=== PATIENT | male | born 2005 | race Caucasian/White ===

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

== ENCOUNTER 2024-01-28 04:22 | Emergency (ER) | payer MEDICAID, SELFPAY ==
[2024-01-28 04:25] VITALS: BP 144/100; PULSE 94; O2SAT 100
[2024-01-28 04:30] VITALS: BP 127/66; PULSE 62; RESP 16; TEMP 37; O2SAT 99; BMI 32.0
[2024-01-28 06:00] VITALS: BP 127/84; PULSE 92; RESP 18; TEMP 36.6; O2SAT 99
--- NOTE | 2024-01-28 06:00 | ED.WOUNDLAC ---
HPI - Wound/Laceration General Chief Complaint: Wound/Laceration Stated Complaint: Laceration Time Seen by Provider: 01/28/24 04:43 Source: patient Mode of arrival: ambulatory Limitations: no limitations History of Present Illness ED Provider: Dr. sIabelle Hickman HPI narrative: Patient's emergency room complaining of a laceration to the forehead. According to the patient, patient got very upset it on purpose smacked his forehead against the porcelain toilet cover and splint have. Patient did not lose consciousness, patient is not on blood thinners. Patient states that he is very regretful of what he did, patient states that when he gets very stressed he self harms without any intention of killing himself. Patient has had this happening before. Related Data Home Medications ?Medication ?Instructions ?Recorded ?Confirmed No Known Home Meds 10/10/23 10/10/23 Allergies Allergy/AdvReac Type Severity Reaction Status Date / Time amoxicillin Allergy Intermediate Swelling Verified 01/28/24 04:34 banana Allergy Intermediate Anaphylaxis Verified 01/28/24 04:34 Review of Systems Review of Systems: Constitutional : No Weight loss, No Fever, No Chills, No Night Sweats, No Fatigue, No Malaise ENT/Mouth : No Hearing loss, No Ear Pain, No Nasal Congestion, No Sinus Pain, No Hoarseness, No sore throat, No Rhinorrhea, No Swallowing Difficulty Eyes: No Eye Pain, No Swelling, No Redness, No Foreign Body, No Discharge, No Vision Changes Cardiovascular : No Chest Pain, No SOB, No Dyspnea on Exertion, No Orthopnea, No Edema, No Palpitations Respiratory : No Cough, No Sputum, No Wheezing, No Smoke Exposure, No Dyspnea Gastrointestinal : No Nausea, No Vomiting, No Diarrhea, No Constipation, No abdominal Pain, No Hematochezia, No Melena Genitourinary : no irregular bleeding, No Dysuria, No Urinary Frequency, No Hematuria, No Urinary Incontinence, No Urgency, No Flank Pain, No Urinary Flow Changes, No Hesitancy Musculoskeletal : No joint pain, No Myalgias, No Joint Swelling Skin : Complaining of a laceration in the forehead, No Skin Lesions, No rash Neuro : No Weakness, No Numbness, No Paresthesias, No Loss of Consciousness, No Dizziness, No Headache Psych : No Anxiety/Panic, No Depression, No SI/HI/AH/VH, No Social Issues, Heme/Lymph: No Bruising, No Bleeding,No Lymphadenopathy Endocrine : No Polyuria, No Polydipsia, No Temperature Intolerance [facility] Past Medical History Medical History Anxiety and depression Suicide attempt Social History Social History Alcohol intake: never Substance Use Type: Marijuana Advance Directives: No Advance Directives Information Provided: No Do you have a plan to hurt others: No Plan Physical Exam Vital Signs: Vital Signs: Last Vital Signs Temp 98.6 F 01/28/24 04:30 Pulse 62 01/28/24 04:30 Resp 16 01/28/24 04:30 BP 127/66 01/28/24 04:30 Pulse Ox 99 01/28/24 04:30 O2 Del Method Room Air 01/28/24 04:30 BMI result Body Mass Index 32.0 Const: Other: Appearance: Alert. Oriented X3. No acute distress. Eyes: Pupils equal, round and reactive to light. ENT: Pharynx normal. Neck: Normal inspection. Neck supple. No lymph nodes noted. No crepitus CVS: Normal heart rate and rhythm. Pulses normal. Normal S1 and S2 Respiratory: No respiratory distress. Breath sounds normal. No Wheezing. No rales Abdomen: Soft and nontender. No rigidity. No distention. Skin: Skin warm and dry. There is a 4 cm laceration in the forehead between eyebrows Extremities: No lower extremity edema. No Lacerations. No Rash Neuro: Oriented X 3. No motor deficit. No sensory deficit. Moving all extremities. No slurred speech. CN 2 through 12 grossly intact Psych: calm, cooperative, normal affect Medical Decision Making Medical Decision Making MDM Narrative: Patient is neurologically intact -patient id 6 stitches tolerated well the procedure -patient is not SI or HI, patient is not on a Section 12, patient does not want to talk to the care team Differential Diagnosis Differential Diagnoses: The differential diagnosis associated with the presentation includes (Laceration, anxiety, self-harm) Procedures Laceration Laceration 1: Site: face (Middle of forehead) Description: linear, flap and irregular Depth: simple, single layer Local Anesthetic: lidocaine 1% Amount of anesthesia used (mL): 6 Pre-repair: wound explored Skin layer closed with: nylon Size (cm): 5-0 Number of sutures: 6 Technique: simple, interrupted Discharge Plan Discharge Clinical Impression: Laceration Patient Disposition: Home, Self-Care Instructions: Care For Your Stitches (ED), Head Laceration (ED) Additional Instructions: Your stitches need to be removed in 7-10 days. Please follow-up with your primary care physician tomorrow. If you have any worsening or new symptoms, please return to the emergency room or call 911 Prescriptions: No Action No Known Home Meds Print Language: Persian
[2024-01-28 06:22] VITALS: BP 127/84; PULSE 92; RESP 18; TEMP 36.6; O2SAT 99
== END 2024-01-28 06:23 | disposition home or self-care (01) ==
PROVIDERS: Emergency Provider Emergency Medicine
DX: S01.81XA Laceration without foreign body of other part of head, initial encounter (principal); X83.8XXA Intentional self-harm by other specified means, initial encounter; F41.8 Other specified anxiety disorders; Y93.9 Activity, unspecified; Y92.9 Unspecified place or not applicable; Y99.9 Unspecified external cause status
CPT/HCPCS: 12013; 99284

== ENCOUNTER 2024-11-09 13:55 | Emergency (ER) | payer MEDICAID, SELFPAY ==
--- NOTE | ~2024-11-09 | CT_ITS ---
CLINICAL HISTORY: Left flank pain, hematuria CT ABDOMEN AND PELVIS WITHOUT CONTRAST Comparison: None Findings: The lung bases are clear. No hydronephrosis or significant perinephric edema. No urolithiasis. No acute abnormalities in the remaining unenhanced solid organs, gallbladder or abdominal aorta. No bowel obstruction, pneumoperitoneum, or pneumatosis. There is a small amount of free fluid in the pelvis. No significant mesenteric or paracolic edema. Increased number of shotty mesenteric lymph nodes in the right abdomen. The appendix is identified. No acute appendicitis. Nondistended urinary bladder precludes evaluation for wall thickening. Multiple pelvic phleboliths. No acute fracture. Well-circumscribed sclerotic lesion in the left ilium is suggestive of a benign bone island. IMPRESSION: 1. No acute obstructive uropathy or urolithiasis. 2. Small amount of free fluid in the pelvis is considered abnormal in a male patient but is technically indeterminate. No evidence for bowel obstruction or inflammation. 3. Possible mesenteric adenitis. This document has been electronically signed by: Meme Maradiaga DO on 11/09/2024 20:32:48
--- NOTE | 2024-11-09 14:10 | ED.GENADULT ---
HPI - General Adult General Chief complaint: Urogenital-Male Stated complaint: Blood in urine Time Seen by Provider: 11/09/24 16:03 Source: patient and family Mode of arrival: ambulatory Limitations: no limitations History of Present Illness ED Provider: DR. Smalls HPI narrative: 19-year-old male came in for evaluation hematuria associated with left flank pain radiating down to the left groin/suprapubic area. Pain started 3 days ago after having a sexual intercourse started by noticing gross hematuria in the urine with persistent of pain on the left side of his abdomen and suprapubic area, no risk for STI, no discharge from the penis, no scrotal pain or testicular pain or swelling. Normal bowel movement this morning, passing flatus, no history of kidney stone or intra-abdominal surgery. Related Data Home Medications ?Medication ?Instructions ?Recorded ?Confirmed No Known Home Meds 10/10/23 10/10/23 Allergies Allergy/AdvReac Type Severity Reaction Status Date / Time amoxicillin Allergy Intermediate Swelling Verified 11/09/24 14:13 banana Allergy Intermediate Anaphylaxis Verified 11/09/24 14:13 Review of Systems Review of Systems: All other systems are reviewed and are negative Constitutional: Reports as per HPI and Reports no additional constitutional complaints Eyes: Reports as per HPI and Reports no additional eye complaints Reports system reviewed and no additional complaints, except as documented Cardiovascular: Reports as per HPI and Reports no additional cardiovascular complaints Respiratory: Reports as per HPI and Reports no additional respiratory complaints Gastrointestinal: Reports as per HPI and Reports no additional gastrointestinal complaints Genitourinary: Reports no additional female genitourinary complaints Musculoskeletal: Reports no additional musculoskeletal complaints Skin/Breast: Reports system reviewed and no additional complaints, except as docu Psychiatric: Reports no additional psychiatric complaints Endocrine: Reports no additional endocrine complaints Hematologic/Lymphatic: Reports no additional hematologic/lymphatic complaints Allergic/Immunologic: Reports no additional allergic/immunologic complaints Reports system reviewed and no additional complaints, except as documented and Reports Abnormal speech present [facility] Past Medical History Medical History Anxiety and depression Suicide attempt Social History Social History Alcohol intake: never Smoked in Last 30 Days: No Use of substances other than those prescribed or required for medical reasons: Yes Substance Use Type: Marijuana Substance Use Frequency: Occasionally Advance Directives: No Advance Directives Information Provided: No Physical Exam ED Vital Signs: Vital Signs - 24 hr 11/09/24 14:11 11/09/24 15:32 11/09/24 16:00 Temperature 98.7 F 97.8 F 98.1 F Pulse Rate 77 64 67 Respiratory Rate 18 12 13 Blood Pressure 113/48 L 114/74 Pulse Oximetry 97 99 100 Oxygen Delivery Method Room Air Room Air Room Air 11/09/24 17:57 11/09/24 19:09 Temperature 97.1 F 98.3 F Pulse Rate 60 63 Respiratory Rate 12 18 Blood Pressure 105/43 L 114/37 L Pulse Oximetry 96 97 Oxygen Delivery Method Room Air Room Air BMI result Body Mass Index 32.0 Vital signs have been reviewed and appear to be correct. Blood pressure elevated. Heart rate normal. Respiratory rate normal. Temperature normal. Oxygen saturation normal. Appearance: Alert. Oriented X3. No acute distress. Head: Normal external exam. Normocephalic. Atraumatic. No Madden signs noted. No raccoon eyes noted Eyes: PERRLA. EOMI. Conjunctiva and sclera normal. Eyelids normal. ENT: TM's Normal. Pharynx normal. Uvula midline. Moist mucous membranes. No trismus noted. No drooling noted. No muffled voice noted. Neck: Normal inspection. Neck supple. FROM. No adenopathy. Thyroid Normal. No meningeal signs. No neck mass noted. CVS: Normal heart rate and rhythm. Heart sound normal. No murmurs noted. Pulses normal throughout. Respiratory: No respiratory distress. Painless inspiration. Breath sounds normal. No wheezes/rales/rhonchi noted. Chest nontender. No accessory muscle usage noted or decreased air movement noted. Abdomen: Soft and nontender. Bowel sounds normal in all 4 quadrants. No distention noted. No organomegaly noted. No visible injury noted. exam: Circumcised, no testicular or scrotal swelling, +cremasteric reflex bilaterally, no obvious urethral cut or injury. Back: No CVA tenderness. Full range of motion noted. Skin: Skin warm and dry. Normal skin color. Normal skin turgor. No rashes/lesions/lacerations noted. Extremities: No lower extremity edema. Extremities exhibit normal range of motion. Extremities nontender. Neuro: Oriented X 3. Cranial nerve exam: II-XII are grossly intact No motor deficit. No sensory deficit. Reflexes normal. Course Course Course Narrative: This is a rapid medical exam performed by Merrick Lugo NP: Additional HPI, ROS, PE not included below will be deferred to primary provider. Patient is a 19-year-old male presenting to the ED with complaint of hematuria for the past 4-5 days. Denies penile discharge or rashes. Reports pain to suprapubic area, radiating to left flank. Plan: Labs, UA Reevaluation(s) Reevaluation #1: gross hematuria, CT abdomen pelvis showing no obstructive uropathy. Negative STI and UTI. Patient was instructed to drink plenty of fluids and follow-up with urology. Time: 20:44 Medical Decision Making Differential Diagnosis Differential Diagnoses: The differential diagnosis associated with the presentation includes ( ureteric stone, ureteric stone, STI, UTI.) Admission/Observation Consideration of admission/observation: Escalation of care including admission/observation considered Lab Data MDM Lab Attestation statement: I reviewed the patient's lab results. 11/09/24 14:25 11/09/24 14:25 Labs: Lab Results 11/09/24 Range/Units 14:25 WBC 9.8 (4.8-10.8) X10*3/uL RBC 5.23 (4.60-5.80) X10*6/uL Hgb 15.1 (14.0-18.0) g/dl Hct 44.2 (42.0-52.0) % MCV 84.5 (80.0-98.0) fL MCH 28.9 (27.0-33.0) pg MCHC 34.2 (31.0-36.0) g/dl RDW 13.0 (11.0-16.0) % Plt Count 195 (160-400) X10*3/uL MPV 11.3 (9.4-12.4) fL Immature Gran % (Auto) 0.3 (0.0-0.4) % Neut % (Auto) 50.5 (45-73) % Lymph % (Auto) 40.6 H (20-40) % [place] % (Auto) 4.9 (2-11) % Eos % (Auto) 3.3 (0-4) % Baso % (Auto) 0.4 (0-2) % Lymph # (Auto) 4.0 (1.2-4.9) X10*3/uL [place] # (Auto) 0.5 (0.1-1.2) X10*3/uL Eos # (Auto) 0.3 (0.0-0.4) X10*3/uL Baso # (Auto) 0.0 (0.0-0.2) X10*3/uL Abs Immat Gran (auto) 0.03 (0.00-0.03) X10*3/uL Absolute Neuts (auto) 5.0 (2.0-8.3) x10*3/uL Absolute Nucleated RBC 0.000 (0.0-0.012) X10*3/uL Nucleated RBC % (auto) 0.0 (0.0-0.2) /100WBC Sodium 141 (135-145) mmol/L Potassium 4.1 (3.3-5.1) mmol/L Chloride 110 H (96-108) mmol/L Carbon Dioxide 26 (22-29) mmol/L Anion Gap 9 L (12-20) BUN 9 (9-16) mg/dL Creatinine 0.89 (0.5-1.4) mg/dL Estim Creat Clear Calc 139.1 Estimated GFR > 60 Random Glucose 101 (60-115) mg/dL Calcium 9.2 (8.4-10.2) mg/dL Total Bilirubin 0.3 (0.0-1.0) mg/dL AST 29 (5-37) U/L ALT 33 (0-40) U/L Alkaline Phosphatase 164 H (39-117) U/L Total Protein 6.5 (6.5-8.0) g/dL Albumin 4.2 (3.5-5.0) g/dL Urine Color Yellow Urine Appearance Clear Urine pH 7.0 (5.0-9.0) Ur Specific [place] 1.025 (1.005-1.025) Urine Protein 30 (1+) H (Neg-Trace) mg/dL Urine Glucose (UA) Negative (Negative) mg/dL Urine Ketones Trace (Negative) mg/dL Urine Blood Large (3+) H (Negative) Urine Nitrite Negative (Negative) Ur Leukocyte Esterase Negative (Negative) Urine RBC >20 H (0-2) /HPF Urine WBC 0-5 (0-5) /HPF Ur Squamous Epith Cells 0-2 (0-2) /HPF Urine Bacteria None Seen (None Seen) Hyaline Casts 0-2 (0-2) /LPF Chlam trachomat DNA PCR NOT DETECTED (Not Detect.) N.gonorrhoeae DNA (PCR) NOT DETECTED (Not Detect.) Independent Interpretation I performed an independent interpretation of an: CT Scan ( abdomen pelvis:1. No acute obstructive uropathy or urolithiasis. 2. Small amount of free fluid in the pelvis is considered abnormal in a male patient but is technically indeterminate. No evidence for bowel obstruction or inflammation. 3. Possible mesenteric adenitis.) Radiology Impression Discussion of test interpretation with radiology: I have reviewed the radiologist's reading. Discharge Plan Discharge Clinical Impression: Hematuria Patient Disposition: Home, Self-Care Instructions: Hematuria (ED) Prescriptions: No Action No Known Home Meds Referrals: Gualberto Carreno MD [Physician] - Print Language: Georgian
[2024-11-09 14:11] VITALS: PULSE 77; RESP 18; TEMP 37.1; O2SAT 97; BMI 32.0
[2024-11-09 14:29] LABS: MANUAL DIFF FLAG NO
[2024-11-09 14:31] LABS: Basophils Percent Auto 0.4 % (0-2); Eosinophils Absolute Auto 0.3 X10*3/uL (0.0-0.4); Eosinophils Percent Auto 3.3 % (0-4); Hematocrit 44.2 % (42.0-52.0); Hemoglobin 15.1 g/dl (14.0-18.0); Imm Gran Abs Auto 0.03 X10*3/uL (0.00-0.03); Imm Gran Pct Auto 0.3 % (0.0-0.4); Lymphocytes Percent Auto 40.6 % (20-40); Mean Corpuscular HGB Conc 34.2 g/dl (31.0-36.0); Mean Corpuscular Hemoglobin 28.9 pg (27.0-33.0); Mean Corpuscular Volume 84.5 fL (80.0-98.0); Mean Platelet Volume 11.3 fL (9.4-12.4); Monocytes Absolute Auto 0.5 X10*3/uL (0.1-1.2); Monocytes Percent Auto 4.9 % (2-11); Neutrophils Percent Auto 50.5 % (45-73); Platelet Count 195 X10*3/uL (160-400); Red Blood Count 5.23 X10*6/uL (4.60-5.80); White Blood Count 9.8 X10*3/uL (4.8-10.8)
[2024-11-09 14:32] LABS: Appearance Urine Clear; Color Urine Yellow; Glucose Urine UA Negative (Negative); Leukocyte Esterase Urine Negative (Negative); Nitrite Urine Negative (Negative); Specific Gravity - Urine 1.025 (1.005-1.025); UMIC TRIGGER UACC YES; Urine Blood Large (3+) (Negative); Urine Ketones Trace mg/dL (Negative); Urine Protein 30 (1+) mg/dL (Neg-Trace)
[2024-11-09 14:34] LABS: Bacteria Urine None Seen (None Seen); Hyaline Casts Urine 0-2 /LPF (0-2); RBC Urine >20 /HPF (0-2); Squamous Epithelial Cell Urine 0-2 /HPF (0-2); WBC Urine 0-5 /HPF (0-5)
[2024-11-09 14:48] LABS: Alanine Aminotransferase 33 U/L (0-40); Albumin Level 4.2 g/dL (3.5-5.0); Alkaline Phosphatase 164 U/L (39-117); Anion Gap 9 (12-20); Aspartate Amino Transferase 29 U/L (5-37); Bilirubin Total 0.3 mg/dL (0.0-1.0); Blood Urea Nitrogen 9 mg/dL (9-16); Calcium 9.2 mg/dL (8.4-10.2); Carbon Dioxide 26 mmol/L (22-29); Chloride 110 mmol/L (96-108); Creatinine Clr Calc Pharmacy 139.1; Estimated Glomerular Filt Rate > 60; Glucose Random 101 mg/dL (60-115); Potassium 4.1 mmol/L (3.3-5.1); Sodium 141 mmol/L (135-145); Total Protein 6.5 g/dL (6.5-8.0)
[2024-11-09 15:32] VITALS: BP 113/48; PULSE 64; RESP 12; TEMP 36.6; O2SAT 99
--- OUTSIDE RECORDS SUMMARY | 2024-11-09 15:55 | XMS_ITS | Clinical Summary ---
Author Organization [employer] [facility] Address [address] [place] [address] Care Team Providers Care Poultry Processing Supervisor Name Role Phone Unavailable Primary Care Provider Unavailabl e Encounters Date Type Department Care Team Description 09/01/2024 Population Health Risk Score [facility] (C3) Department [address] [place] [address] Provider, Population Health Generic 08/23/2024 Telephone [facility] [address] [place] [address] Emile Cerda MD 08/23/2024 Travel 08/22/2024 Telephone [facility] [address] [place] [address] Emile Cerda MD chart prep from Last 3 Months Social History Tobacco Use Types Packs/Day Years Used Date Smoking Tobacco: Never Assessed Sex and Gender Information Value Date Recorded Sex Assigned at Male 12/24/2023 1:04 PM EDT Legal Sex Male 1:04 PM EDT Gender Identity Male 12/24/2023 1:04 PM EDT Sexual Orientation Don't know 08/23/2024 11 :16 AM EST Plan of Treatment Health Maintenance Due Date Last Done Comments Chlamydia and Gonorrhea Screening 2004 Depression Screening 2004 HIV Screening 2004 Lipid Panel 2004 SDOH Screening 2004 Disability Screening 2004 Alcohol/Substance Use Screening 2016 Tobacco Screening 2016 Family Planning (PISQ) 08/22/2019 Meningococcal B Vaccine (1 of 2 - Standard) 2020 Hepatitis C Screening 2022 Pneumococcal Vaccine: Pediatrics (0 to 5 Years) and At-Risk Patients (6 to 49) Years) (1 of 2 - PCV) 08/22/2023 07/22/2006, 09/30/2005, 2004, Additional history exists COVID-19 Vaccine ( season) 2024 Influenza Vaccine (#1) 2024 , 04/17/2020, 03/27/2019, Additional history exists DTaP/Tdap/Td Vaccines (7 - Td or Tdap) 02/25/2026 02/26/2016, 02/01/2009, 08/06/2006, Additional history exists Zoster Vaccines (1 of 2) 2054 RSV Patients and Patients Aged 60 years or older (1 - 1-dose 75+ series) 08/22/2079 Hepatitis B Vaccines Completed 07/22/2006, 2004, 2004 IPV Vaccines Completed 09/27/2008, 06/2006, 2004, Additional history exists HIB Vaccines Completed 03/24/2012, 06/2006, 02/05/2006, Additional history exists Hepatitis A Vaccines Completed 11/14/2014, 05/09/20 14 HPV Vaccines Completed 04/26/2018, 02/26/2016 Meningococcal Vaccine Completed 09/10/2021, 016 RSV under 20 months Aged Out No longe r eligible based on patient's age to complete this topic Rotavirus Vaccines Aged Out No longer eligible based on patient's age to complete this topic Insurance C3 Care Teams Poultry Processing Supervisor Relationship Specialty Start Date End Date Kayy Edwards Face ManSeal Mixer 08/01/24
[2024-11-09 16:00] VITALS: BP 114/74; PULSE 67; RESP 13; TEMP 36.7; O2SAT 100
[2024-11-09 16:21] LABS: CT PCR NOT DETECTED (Not Detect.); NG PCR NOT DETECTED (Not Detect.)
[2024-11-09 17:57] VITALS: BP 105/43; PULSE 60; RESP 12; TEMP 36.2; O2SAT 96
[2024-11-09 19:09] VITALS: BP 114/37; PULSE 63; RESP 18; TEMP 36.8; O2SAT 97
--- NOTE | 2024-11-09 19:20 | PC.NURSE ---
assumed care of pt at 1900. report received from Anneliese GRANDE. disposition pending CT scan results.
[2024-11-09 21:07] VITALS: BP 114/37; PULSE 63; RESP 18; TEMP 36.8; O2SAT 97
== END 2024-11-09 21:07 | disposition home or self-care (01) ==
PROVIDERS: Registered Nurse Emergency; Emergency Provider Emergency Medicine
DX: R31.9 Hematuria, unspecified (principal)
CPT/HCPCS: 36415; 74176; 80053; 81001; 85025; 87491; 87591; 99284

== ENCOUNTER → 2024-11-09 16:12 | Outpatient (BNV) | payer MEDICAID, SELFPAY | PROVIDERS: Emergency Provider Emergency Medicine; Visit Provider Radiology Diagnostic Radiology | DX: R10.9 Unspecified abdominal pain (principal); R31.9 Hematuria, unspecified | CPT/HCPCS: 74176 ==

== ENCOUNTER → 2024-12-04 08:23 | Outpatient (BNV) | payer MEDICAID, SELFPAY | PROVIDERS: Emergency Provider Emergency Medicine Emergency Medical Services; Visit Provider Radiology Diagnostic Radiology | DX: M25.571 Pain in right ankle and joints of right foot (principal) | CPT/HCPCS: 73610; 73630 ==

== ENCOUNTER 2024-12-04 08:47 | Emergency (ER) | payer MEDICAID, SELFPAY ==
--- NOTE | ~2024-12-04 | XR_ITS ---
EXAMINATION: XR FOOT, RIGHT CLINICAL INFORMATION: twisted ankle/foot COMPARISON: 04/26/2022. TECHNIQUE: AP, lateral, and oblique views of the right foot. FINDINGS: The bones and soft tissues are normal. No fracture. Alignment is anatomic. Normal plantar arch. Joint spaces are maintained. XR/XR foot RT min 3V IMPRESSION: Normal right foot. Electronically signed by: Juan Ramon Bhatt MD 12/04/2024 09:40 AM EDT
--- NOTE | ~2024-12-04 | XR_ITS ---
EXAMINATION: XR ANKLE, RIGHT CLINICAL INFORMATION: pain,rolled ankle COMPARISON: None available. TECHNIQUE: AP, lateral, and mortise views of the right ankle. FINDINGS: No fracture, dislocation, or suspicious bone lesion. Normal bone mineralization. Normal alignment. The mortise is intact. The talar dome is normal. Joint spaces are preserved. No significant arthropathy. No significant ankle joint effusion. Soft tissues appear normal. XR/XR ankle RT min 3V IMPRESSION: Normal right ankle. Electronically signed by: Juan Ramon Bhatt MD 12/04/2024 09:34 AM EDT
[2024-12-04 09:00] VITALS: BP 125/69; PULSE 78; RESP 16; TEMP 36.7; O2SAT 98; BMI 30.7
--- NOTE | 2024-12-04 09:51 | ED_ITS ---
HPI - Extremity Injury (Lower) General Chief Complaint: Extremity Injury, Lower Stated Complaint: R ANKLE PAIN,?SPRAIN,NO INJURY PER EMS Time Seen by Provider: 12/04/24 09:03 Source: patient, EMS, RN notes reviewed and old records reviewed Mode of arrival: EMS History of Present Illness ED Provider: Shi Cruz PA-C HPI Narrative: 19-year-old male with no significant past medical history presenting to the ED complaining of right ankle pain and swelling s/p twisting after stepping in a pothole [employer]G [employer]. States was not paying attention and stepped into a pothole, admits to falling to ground, denies head trauma or LOC. has been ambulatory with pain since incident. Denies injury to other area, numbness, tingling, weakness. Related Data Home Medications ?Medication ?Instructions ?Recorded ?Confirmed No Known Home Meds 10/10/23 10/10/23 Allergies Allergy/AdvReac Type Severity Reaction Status Date / Time amoxicillin Allergy Intermediate Swelling Verified 12/04/24 09:02 banana Allergy Intermediate Anaphylaxis Verified 12/04/24 09:02 Review of Systems Review of Systems: Yes all other systems are reviewed and are negative Constitutional: Constitutional: Reports as per HPI [facility] Past Medical History Attestation statement: The following information was validated with the patient. Source: old records reviewed Medical History Anxiety and depression Suicide attempt Social History Social History Alcohol intake: never Substance Use Type: Marijuana Advance Directives: No Advance Directives Information Provided: Yes Do you have a plan to hurt others: No Plan Physical Exam Vital Signs: Vital Signs: Last Vital Signs Temp 98.1 F 12/04/24 09:00 Pulse 78 12/04/24 09:00 Resp 16 12/04/24 09:00 BP 125/69 12/04/24 09:00 Pulse Ox 98 12/04/24 09:00 O2 Del Method Room Air 12/04/24 09:00 BMI result Body Mass Index 30.7 Const: General: cooperative, healthy appearing and no acute distress Orientation/consciousness: patient oriented x3 Limitations: no limitations HEENT: Head: Yes normal to inspection and Yes atraumatic Ears: hearing grossly normal bilaterally General nose exam: Normal external nose present Face and sinus: Yes normal facial exam Eyes: General: appearance normal, both eyes and all related structures EOM: EOMs intact bilaterally Neck: Neck: Yes normal visual inspection and Yes no meningeal signs Resp: Effort & Inspection: normal respiratory effort and no respiratory distress Cardio: Rate: regular rate Skin: Rashes: no rashes Wounds: no wounds Neuro: General: patient oriented x3, tone normal and no meningeal signs Cranial nerves: Yes CN's II-XII intact bilaterally Gait exam (Neuro): Normal gait present Extrem: Other: Right ankle with lateral malleolar swelling and tenderness to palpation. ROM intact with discomfort. Proximal foot with appreciable tenderness. Neurovascularly intact. Knee nontender. No pitting edema or crepitus. No erythema/warmth Course Course Course Narrative: /XR foot RT min 3V IMPRESSION: Normal right foot. XR ankle RT min 3V IMPRESSION: Normal right ankle. > Aircast and crutches applied Results discussed with patient including worrisome signs and symptoms and strict return precautions, and when to return to the emergency department. They verbalized understanding and feel safe for discharge at this time. 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 On exam vital signs stable, NAD, nontoxic appearing, physical exam as noted above. Concern for ankle/foot sprain vs fracture. No evidence of septic joint or compartment syndrome. Unlikely DVT Plan: X-rays Please refer to course for remaining clinical decision making, interpretation of labs/imaging results, and discussions with consultants and/or family members. Differential Diagnosis Differential Diagnoses: The differential diagnosis associated with the presentation includes As above Independent Interpretation I performed an independent interpretation of an: Plain X-Ray Radiology Impression Discussion of test interpretation with radiology: I have reviewed the radiologist's reading. Independent Historian Clinical information obtained from an independent historian. History obtained from or confirmed by: EMS External Record Review External record reviewed: Inpatient record, Office record, Outpatient record, Prior outpatient labs, Prior outpatient radiology, Primary care record and Outside ED record Tests considered The following testing was considered but not selected: As above Prescription Management I considered prescription management with: Pain Medication Chronic Conditions Patient?s care impacted by: Other Social Determinants Patient?s care significantly limited by Social Determinants of Health including: Other Social Determinant of Health Procedures Orthopedic Splinting/Casting Injury #1: Side: right Lower Extremity Injury Location: ankle and foot Lower Extremity Immobilizer: AirCast Other Orthopedic Equipment: crutches Discharge Plan Discharge Clinical Impression: Ankle sprain and strain Patient Disposition: Home, Self-Care Instructions: Ankle Sprain (DC) Additional Instructions: Your x-rays do not show fracture You sprain your ankle Wear Aircast as needed for comfort and stability Ice and elevate Use crutches as needed Bear weight as tolerated Follow up with her doctor Take Tylenol and ibuprofen for pain/swelling Prescriptions: No Action No Known Home Meds Referrals: Physician,None [Primary Care Provider] - 1 week Stand Alone Forms: Work/School Release Print Language: Kuwaiti
--- OUTSIDE RECORDS SUMMARY | 2024-12-04 09:58 | XMS_ITS | Encounter Summary ---
Author Organization [facility] Address [address] [place] [address] Phone Care Team Providers Care Loom Tuner Name Role Phone Santos Levin MD Primary Care Provider [phone] Encounter Details Date Type Department Care Team (Late st Contact Info) Description 11/22/2014 Documentation [facility] [place] [address] [place] [address] Family Medicine, Physician [address] [place] [address] Social History Tobacco Use Types Packs/Day Years Used Date Smoking Tobacco: Never Assessed Sex and Gender Information Value Date Recorded Sex Assigned at Not on file Legal Sex Male 4:57 PM EDT Gender Identity Male 08/26/2021 9:06 AM EST Sexual Orientation Not on file documented as of this encounter Plan of Treatment Not on file documented as of this encounter Visit Diagnoses Not on filedocumented in this encounter Care Teams Loom Tuner Relationship Specialty Start Date End Date Santos Levin MD [address] [place] [id number] PCP - General Pediatrics 12/10/23 01/12/24 documented as of this encounter
[2024-12-04 10:20] VITALS: BP 125/69; PULSE 78; RESP 16; TEMP 36.7; O2SAT 98
== END 2024-12-04 10:21 | disposition home or self-care (01) ==
PROVIDERS: Emergency Provider Emergency Medicine Emergency Medical Services
DX: S96.911A Strain of unspecified muscle and tendon at ankle and foot level, right foot, initial encounter (principal); S93.401A Sprain of unspecified ligament of right ankle, initial encounter; W17.2XXA Fall into hole, initial encounter; Y93.01 Activity, walking, marching and hiking; Y92.480 Sidewalk as the place of occurrence of the external cause; Y99.9 Unspecified external cause status
CPT/HCPCS: 73610; 73630; 99283; 99284

== ENCOUNTER 2025-01-16 15:44 | Emergency (ER) | payer MEDICAID, SELFPAY ==
[2025-01-16 15:55] VITALS: BP 132/84; PULSE 106; O2SAT 97; BMI 25.8
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
[2025-01-16 16:38] VITALS: BP 122/71; PULSE 69; RESP 17; TEMP 36.4; O2SAT 97
== END 2025-01-16 17:39 | disposition home or self-care (01) ==
LOC: HO.ED 17:41
PROVIDERS: Emergency Provider Emergency Medicine
DX: F41.9 Anxiety disorder, unspecified (principal); Z91.51 Personal history of suicidal behavior
CPT/HCPCS: 99284

== ENCOUNTER 2025-05-27 18:12 | Emergency (ER) | payer MEDICAID, SELFPAY ==
[2025-05-27 18:17] VITALS: BP 131/77; PULSE 89; RESP 18; TEMP 36.6; O2SAT 98; BMI 27.6
--- NOTE | 2025-05-27 18:18 | ED_ITS ---
HPI - URI/Sore Throat General Chief Complaint: General Medical Stated Complaint: Flu like symptoms Time Seen by Provider: 05/27/25 19:38 Source: patient, RN notes reviewed and old records reviewed Mode of arrival: ambulatory History of Present Illness ED Provider: Shi Cruz PA-C [facility] Narrative: 19-year-old male with a past medical history anxiety, depression, presenting to the ED complaining of nausea and vomiting (3 episodes) this morning with associated subjective fever, chills, congestion, and myalgias. Reports symptomatic improvement at present except some continued congestion. States his boss made him come get evaluated. Also requesting STI testing. Denies any penile discharge/ lesions or STI symptoms at this time. denies abdominal pain, CP/SOB Related Data Home Medications ?Medication ?Instructions ?Recorded ?Confirmed No Known Home Meds 10/10/23 10/10/23 Allergies Allergy/AdvReac Type Severity Reaction Status Date / Time amoxicillin Allergy Intermediate Swelling Verified 05/27/25 18:20 banana Allergy Intermediate Anaphylaxis Verified 05/27/25 18:20 Review of Systems 2 Review of Systems: Yes all other systems are reviewed and are negative Constitutional: Constitutional: Reports as per [facility] Past Medical History Attestation statement: The following information was validated with the patient. Source: old records reviewed Medical History Anxiety and depression Suicide attempt Social History Social History Alcohol intake: never Substance Use Type: Marijuana Advance Directives: No Advance Directives Information Provided: Yes Do you have a plan to hurt others: No Plan Physical Exam 2 Vital Signs: Vital Signs: Last Vital Signs Temp 98 F 05/27/25 18:17 Pulse 89 05/27/25 18:17 Resp 18 05/27/25 18:17 BP 131/77 05/27/25 18:17 Pulse Ox 98 05/27/25 18:17 O2 Del Method Room Air 05/27/25 18:17 BMI result Body Mass Index 27.6 Const: General: cooperative, healthy appearing and no acute distress O rientation/consciousness: patient oriented x3 Limitations: no limitations HEENT: Head: Yes normal to inspection and Yes atraumatic Ears: hearing grossly normal bilaterally General nose exam: Normal external nose present Face and sinus: Yes normal facial exam Mouth: Normal oral and palatal mucosa present Eyes: General: appearance normal, both eyes and all related structures EOM: EOMs intact bilaterally Neck: Neck: Yes normal visual inspection and Yes no meningeal signs Resp: Effort & Inspection: normal respiratory effort and no respiratory distress Auscultation: clear to auscultation bilaterally Cardio: Rate: regular rate Heart sounds: S1 normal heart sound present and S2 normal heart sound present GI: Inspection: Yes normal to inspection Palpation (GI): Soft to palpation, nontender, no guarding and not rigid Skin: Rashes: no rashes Wounds: no wounds Neuro: General: patient oriented x3, tone normal, moves all extremities and no meningeal signs Cranial nerves: Yes CN's II-XII intact bilaterally Gait exam (Neuro): Normal gait present Extrem: General: Yes normal to inspection Course Course Course Narrative: This is a Rapid Medical Exam performed in triage by Shi Cruz PA-C. Full HPI, ROS and PE to be performed by primary ED provider. 19 yo M presenting to the ED c/o subj fever, chills, congestion, mylgias, nausea & vomiting x today. Admits sx are improving. Also requesting STI testing PE: NAD, nontoxic appearing, ambulating with steady gait, +congested Plan: SARs, labs, UA - Labs reassuring. UA negative -2005-- COVID/flu/ RSV negative Results discussed with patient including worrisome signs and symptoms and strict return precautions, and when to return to the emergency department. They verbalized understanding and feel safe for discharge at this time. Medical Decision Making Medical Decision Making MDM Narrative: 19-year-old male with a past medical history anxiety, depression, presenting to the ED complaining of nausea and vomiting this morning with associated subjective fever, chills, congestion, and myalgias. Also requesting STI testing. On exam vital signs stable, NAD, nontoxic appearing, abdomen is soft and nontender. Lungs CTA. physical exam as noted above. Concern for viral illness and gastroenteritis. rule out metabolic abnormalities. Low suspicion for pneumonia, ACS, appendicitis /diverticulitis or cholecystitis/lithiasis Plan: Labs, SARs, UA, STI testing Please refer to course for remaining clinical decision making, interpretation of labs/imaging results, and discussions with consultants and/or family members. Differential Diagnosis Differential Diagnoses: The differential diagnosis associated with the presentation includes As above Admission/Observation Consideration of admission/observation: Escalation of care including admission/observation considered Lab Data MDM Lab Attestation statement: I reviewed the patient's lab results. 05/27/25 18:26 05/27/25 18:26 Labs: Lab Results 05/27/25 Range/Units 18:26 WBC 9.4 (4.8-10.8) X10*3/uL RBC 5.01 (4.60-5.80) X10*6/uL Hgb 14.1 (14.0-18.0) g/dl Hct 43.3 (42.0-52.0) % MCV 86.4 (80.0-98.0) fL MCH 28.1 (27.0-33.0) pg MCHC 32.6 (31.0-36.0) g/dl RDW 13.3 (11.0-16.0) % Plt Count 194 (160-400) X10*3/uL MPV 12.2 (9.4-12.4) fL Immature Gran % (Auto) 0.3 (0.0-0.4) % Neut % (Auto) 64.5 (45-73) % Lymph % (Auto) 27.2 (20-40) % [place] % (Auto) 5.5 (2-11) % Eos % (Auto) 1.9 (0-4) % Baso % (Auto) 0.6 (0-2) % Lymph # (Auto) 2.6 (1.2-4.9) X10*3/uL [place] # (Auto) 0.5 (0.1-1.2) X10*3/uL Eos # (Auto) 0.2 (0.0-0.4) X10*3/uL Baso # (Auto) 0.1 (0.0-0.2) X10*3/uL Abs Immat Gran (auto) 0.03 (0.00-0.03) X10*3/uL Absolute Neuts (auto) 6.0 (2.0-8.3) x10*3/uL Absolute Nucleated RBC 0.000 (0.0-0.012) X10*3/uL Nucleated RBC % (auto) 0.0 (0.0-0.2) /100WBC Sodium 142 (135-145) mmol/L Potassium 4.1 (3.3-5.1) mmol/L Chloride 112 H (96-108) mmol/L Carbon Dioxide 26 (22-29) mmol/L Anion Gap 8 L (12-20) BUN 11 (9-16) mg/dL Creatinine 0.80 (0.5-1.4) mg/dL Estim Creat Clear Calc 149.2 Estimated GFR > 60 Random Glucose 92 (60-115) mg/dL Calcium 9.1 (8.4-10.2) mg/dL Magnesium 1.9 (1.6-2.6) mg/dL Total Bilirubin 0.4 (0.0-1.0) mg/dL Direct Bilirubin 0.2 (0.0-0.5) mg/dL AST 23 (5-37) U/L ALT 20 (0-40) U/L Alkaline Phosphatase 119 H (39-117) U/L Total Protein 6.4 L (6.5-8.0) g/dL Albumin 4.4 (3.5-5.0) g/dL Urine Color Yellow Urine Appearance Clear Urine pH 6.5 (5.0-9.0) Ur Specific [place] 1.025 (1.005-1.025) Urine Protein Negative (Neg-Trace) mg/dL Urine Glucose (UA) Negative (Negative) mg/dL Urine Ketones Trace (Negative) mg/dL Urine Blood Negative (Negative) Urine Nitrite Negative (Negative) Ur Leukocyte Esterase Negative (Negative) Radiology Impression Discussion of test interpretation with radiology: I have reviewed the radiologist's reading. External Record Review External record reviewed: Inpatient record, Office record, Outpatient record, Prior outpatient labs, Prior outpatient radiology, Primary care record and Outside ED record Tests considered The following testing was considered but not selected: As above Discharge Plan Discharge Clinical Impression: Acute viral syndrome Patient Disposition: Home, Self-Care Instructions: Viral Syndrome (ED) Additional Instructions: your blood work is reassuring You were found to have concern for sexually transmitted infection on your visit today. Your sexual partners need to be advised they should seek care as well. It is important you abstain from sexual activity while you are on your antibiotics or having active symptoms. We will notify you of any POSITIVE pending results. For further testing including HIV and follow up for your visit you can reach out to your primary care doctor, [facility], or [facility]. [place] [phone] [facility] [phone] Prescriptions: No Action No Known Home Meds [facility]errals: [facility] [Primary Care Provider, Medical] - 5 days Print Language: Turkmen
[2025-05-27 18:37] LABS: MANUAL DIFF FLAG NO
[2025-05-27 18:41] LABS: Appearance Urine Clear; Glucose Urine UA Negative (Negative); PH 6.5 (5.0-9.0); Specific Gravity - Urine 1.025 (1.005-1.025)
[2025-05-27 18:55] LABS: Alanine Aminotransferase 20 U/L (0-40); Albumin Level 4.4 g/dL (3.5-5.0); Alkaline Phosphatase 119 U/L (39-117); Anion Gap 8 (12-20); Aspartate Amino Transferase 23 U/L (5-37); Blood Urea Nitrogen 11 mg/dL (9-16); Calcium 9.1 mg/dL (8.4-10.2); Carbon Dioxide 26 mmol/L (22-29); Chloride 112 mmol/L (96-108); Creatinine Clr Calc Pharmacy 149.2; Estimated Glomerular Filt Rate > 60; Magnesium 1.9 mg/dL (1.6-2.6); Potassium 4.1 mmol/L (3.3-5.1); Sodium 142 mmol/L (135-145); Total Protein 6.4 g/dL (6.5-8.0)
[2025-05-27 19:02] LABS: Hematocrit 43.3 % (42.0-52.0); Hemoglobin 14.1 g/dl (14.0-18.0); Imm Gran Abs Auto 0.03 X10*3/uL (0.00-0.03); Imm Gran Pct Auto 0.3 % (0.0-0.4); Lymphocytes Absolute Auto 2.6 X10*3/uL (1.2-4.9); Mean Corpuscular HGB Conc 32.6 g/dl (31.0-36.0); Mean Corpuscular Hemoglobin 28.1 pg (27.0-33.0); Mean Corpuscular Volume 86.4 fL (80.0-98.0); NRBC Abs Auto 0.000 X10*3/uL (0.0-0.012); NRBC Pct Auto 0.0 /100WBC (0.0-0.2); Platelet Count 194 X10*3/uL (160-400); Red Blood Count 5.01 X10*6/uL (4.60-5.80); White Blood Count 9.4 X10*3/uL (4.8-10.8)
--- OUTSIDE RECORDS SUMMARY | 2025-05-27 19:15 | XMS_ITS | Encounter Summary ---
Author Organization [facility] Address [address] [place] [address] Phone Care Team Providers Care Stores Despatch Hand Name Role Phone Santos Levin MD Primary Care Provider Encounter Details Date Type Department Care Team (Late st Contact Info) Description 11/22/2014 Documentation [facility] [place] [address] [place] [address] Family Medicine, Physician [address] [place] [address] Social History Tobacco Use Types Packs/Day Years [...] on filedocumented in this encounter Care Teams Stores Despatch Hand Relationship Specialty Start Date End Date Santos Levin MD [address] [place] [address] PCP - General Pediatrics 12/10/23 01/12/24 documented as of this encounter
--- OUTSIDE RECORDS SUMMARY | 2025-05-27 19:15 | XMS_ITS | Encounter Summary ---
Author Organization [facility] Address [address] [place] [address] Phone Care Team Providers Care Blood Bank Business Manager Name Role Phone Santos Levin MD Primary Care Provider [phone] Reason for Visit * Reason Comments Med Refill Encounter Details Date Type Department Care Team ([facility] st Contact Info) Description 02/24/2022 Refill [facility] Pediatrics - [place] [address] [place] [address] Santos Levin MD [address] [place] [address] Fever, unspecified fever cause Social History Tobacco Use Types Packs/Day Years Used Date Smoking Tobacco: Unknown Alcohol Use Standard Drinks/Week Comments Not Currently 0 (1 standard drink = 0.6 oz pur e alcohol) Hunger/Food Answer Date Recorded In the last 12 months, did y ou or your family ever eat less than you felt you should because there wasn't enough money for food? No 09/10/2021 Stable Housing Answer Date Recorded Are you worried that in the next 2 months you may not have stable housing? Yes 09/10/2021 Transportation Concerns Answer Date Rec orded In the last 12 months, have you or your family ever had to go without healthcare because you didn't have a way to get there? No 09/10/2021 Hazards in Home Answer Date Recorded Think about the place you li ve. Do you have problems with any of the following? Pests (mice or roaches), mold, no/not working smoke detectors, water leaks, no window guards. No 2021 Financing Utilities Answer Date Recorde d In the last 12 months, has t he electric, gas, oil, or water company threatened to shut off your services in your home? No 09/10/2021 Safety at Home Answer Date Recorded Are you or your family worried about feeling saf e in your home? No 09/10/2021 Outside Support Answer Date Recorded Do you feel that you need mo re support from other people or programs to help you care for yourself or your family? Yes 09/10/2021 Understanding Health Concerns Answer Da te Recorded Do you need help understandi ng your or your child's healthcare needs (diagnosis, medications, plan, etc.)? No 09/10/2021 Financing Health Concerns Answer Date R ecorded In the last 12 months, was t here a time when your child needed to see a doctor or get medications or supplies but could not because of cost? No 09/10/2021 Missing School or Work Answer Date Venkatesh rded Did you or your child miss s chool or work because of a health problem that could have been avoided? No 09/10/2021 Sex and Gender Information Value Date Recorded Sex Assigned at Not on file Legal Sex Male 4:57 PM EDT Gender Identity Male 08/26/2021 9:06 AM EST Sexual Orientation Not on file documented as of this encounter Plan of Treatment Not on file documented as of this encounter Visit Diagnoses Diagnosis Fever, unspecified fever cause documented in this encounter Care Teams Blood Bank Business Manager Relationship Specialty Start Date End Date Santos Levin MD [address] [place] [address] PCP - General Pediatrics 12/10/23 01/12/24 documented as of this encounter
--- OUTSIDE RECORDS SUMMARY | 2025-05-27 19:15 | XMS_ITS | Encounter Summary ---
Author Organization [facility] Address [address] [place] [address] Phone Care Team Providers Care Electric Stop Installer Name Role Phone Santos Levin MD Primary Care Provider [phone] Encounter Details Date Type Department Care Team (Late st Contact Info) Description 11/23/[address] [facility] [place] [address] [place] [address] Family Medicine, Physician [address] [place] [address] Social History Tobacco Use Types Packs/Day Years [...] on filedocumented in this encounter Care Teams Electric Stop Installer Relationship Specialty Start Date End Date Santos Levin MD [address] [place] [phone] PCP - General Pediatrics 12/10/23 01/12/24 documented as of this encounter
--- OUTSIDE RECORDS SUMMARY | 2025-05-27 19:15 | XMS_ITS | Encounter Summary ---
Author Organization [facility] Address [address] [place] [address] Phone Care Team Providers Care Tag Marker Name Role Phone Santos Levin MD Primary Care Provider [phone] Encounter Details Date Type Department Care Team ([facility] st Contact Info) Description 01/27/2017 Conversion Encounter [facility] Pediatrics - [address], [address] [place] [address] Chante Herrera NP [address] [place] [address] Social History Tobacco Use Types Packs/Day Years [...] on filedocumented in this encounter Care Teams Tag Marker Relationship Specialty Start Date End Date Santos Levin MD [address] [place] [address] PCP - General Pediatrics 12/10/23 01/12/24 documented as of this encounter
--- OUTSIDE RECORDS SUMMARY | 2025-05-27 19:15 | XMS_ITS | Encounter Summary ---
Author Organization [facility] Address [address] [place] [address] Phone Care Team Providers Care Oncology Nurse Name Role Phone Santos Levin MD Primary Care Provider [phone] Encounter Details Date Type Department Care Team (Late st Contact Info) Description 02/04/2017 Conversion Encounter [facility] - [address] [address] Social History Tobacco Use Types Packs/Day Years [...] on filedocumented in this encounter Care Teams Oncology Nurse Relationship Specialty Start Date End Date Santos Levin MD [address] [place] [address] PCP - General Pediatrics 12/10/23 01/12/24 documented as of this encounter
--- OUTSIDE RECORDS SUMMARY | 2025-05-27 19:15 | XMS_ITS | Encounter Summary ---
Author Organization [facility] Address [address] [place] [address] Phone Care Team Providers Care Wood Chopper Name Role Phone Santos Levin MD Primary Care Provider [phone] Encounter Details Date Type Department Care Team (Late st Contact Info) Description 05/11/2014 Documentation [facility] [place] [address] [place] [address] Family Medicine, Physician [address] [place] [address] Social History Tobacco Use Types Packs/Day Years [...] on filedocumented in this encounter Care Teams Wood Chopper Relationship Specialty Start Date End Date Santos Levin MD [address] [place] [phone] PCP - General Pediatrics 12/10/23 01/12/24 documented as of this encounter
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
--- OUTSIDE RECORDS SUMMARY | 2025-05-27 19:15 | XMS_ITS | Encounter Summary ---
Author Organization [facility] Address [address] [place] [address] Phone Care Team Providers Care Head Cook Name Role Phone Santos Levin MD Primary Care Provider [phone] Encounter Details Date Type Department Care Team (Late st Contact Info) Description 02/01/2013 Documentation [facility] Family Medicine [address] [place] [address] Family Medicine, Physician [address] [place] [address] Social History Tobacco Use Types Packs/Day Years [...] on filedocumented in this encounter Care Teams Head Cook Relationship Specialty Start Date End Date Santos Levin MD [address] [place] [id number] PCP - General Pediatrics 12/10/23 01/12/24 documented as of this encounter
--- OUTSIDE RECORDS SUMMARY | 2025-05-27 19:15 | XMS_ITS | Encounter Summary ---
Author Organization [facility] Address [address] [place] [address] Phone Care Team Providers Care Used Equipment Sales Representative Name Role Phone Santos Levin MD Primary Care Provider [phone] Encounter Details Date Type Department Care Team (Late st Contact Info) Description 05/20/2012 Documentation [facility] Family Medicine [address] [place] [address] Family Medicine, Physician [address] [place] [address] Social History Tobacco Use Types Packs/Day Years [...] on filedocumented in this encounter Care Teams Used Equipment Sales Representative Relationship Specialty Start Date End Date Santos Levin MD [address] [place] [id number] PCP - General Pediatrics 12/10/23 01/12/24 documented as of this encounter
--- OUTSIDE RECORDS SUMMARY | 2025-05-27 19:15 | XMS_ITS | Clinical Summary ---
Author Organization [employer] Address [address] [facility] [address] [place] [address] Care Team Providers Care Compound Mixer Name Role Phone Unavailable Primary Care Provider Unavailabl e Social History Tobacco Use Types Packs/Day Years Used Date Smoking Tobacco: Never Assessed Sex and Gender Information Value Date Recorded Sex Assigned at Male 12/24/2023 1:04 PM EDT Legal Sex Male 1:04 PM EDT Gender Identity Male 12/24/2023 1:04 PM EDT Sexual Orientation Don't know 08/23/2024 11 :16 AM EST Plan of Treatment Health Maintenance Due Date Last Done Comments Depression Screening 2004 HIV Screening 2004 Lipid Panel 2004 SDOH Screening 2004 Disability Screening 2004 Alcohol/Substance Use Screening 2016 Tobacco Screening 2016 Family Planning (PISQ) 08/22/2019 Meningococcal B Vaccine (1 of 2 - Standard) 2020 Hepatitis C Screening 2022 Pneumococcal Vaccine: Pediatrics (0 to 5 Years) and At-Risk Patients (6 to 49) Years (1 of 2 - PCV) 08/22/2023 07/22/2006, 09/30/2005, 2004, Additional history exists COVID-19 Vaccine (1 - 2024- season) 2025 Influenza Vaccine (#1) 2025 , 04/17/2020, 03/27/2019, Additional history exists Chlamydia and Gonorrhea Screening 11/09/2025 11/09/2024, 11/09/2024, 07/21/2022, Additional history exists DTaP/Tdap/Td Vaccines (7 - [...] patient's age to complete this topic [place] [place] [address] C3 Care Teams Compound Mixer Relationship Specialty Start Date End Date Kayy Edwards Design DraftsmanSystem Analyst 08/01/24
[2025-05-27 20:07] LABS: Resp Syncy Virus RNA Qual PCR NEGATIVE (Negative); SARS COV2 PCR INHOUSE NEGATIVE (Negative)
[2025-05-27 20:21] VITALS: BP 131/77; PULSE 89; RESP 18; TEMP 36.6; O2SAT 98
[2025-05-28 00:07] LABS: CT PCR Urine NOT DETECTED (Not Detect.); NG PCR Urine NOT DETECTED (Not Detect.)
== END 2025-05-27 20:21 | disposition home or self-care (01) ==
PROVIDERS: Physician Assistant; Emergency Provider Emergency Medicine Emergency Medical Services
DX: B34.9 Viral infection, unspecified (principal); Z20.2 Contact with and (suspected) exposure to infections with a predominantly sexual mode of transmission; Z03.818 Encounter for observation for suspected exposure to other biological agents ruled out
CPT/HCPCS: 80048; 80076; 81003; 83735; 85025; 87491; 87591; 87637; 99282; 99283